=== PATIENT | female | born 1940 | race Two or more races ===

== ENCOUNTER 2021-11-30 22:06 | Emergency (ER) | payer MEDICARE, MEDICAID ==
[~2021-11-30] VITALS: Ht 157.5 cm; Wt 91.0 kg
[2021-11-30 22:08] VITALS: BP 127/70
[2021-12-01 00:27] LABS: CHLORIDE 99 mEq/L (98-107)
[2021-12-01 00:34] LABS: BASOPHILS % 0.3 % (0.0-2.0); EOSINOPHILS % 1.5 % (0.0-5.0); HEMATOCRIT. 43.9 % (36.0-48.0); HEMOGLOBIN. 14.7 g/dL (12.0-16.0); LYMPHOCYTES % 21.9 % (20.0-50.0); MEAN CORPUSCULAR HEMOGLOBIN 31.3 pg (28.0-32.0); MEAN CORPUSCULAR VOLUME 93.2 fL (81.0-99.0); MEAN PLATELET VOLUME 8.2 fl (7.4-10.4); NEUTROPHILS % 68.3 % (40.0-76.0); PLATELET 225 x1000/uL (130-400); RED BLOOD CELL COUNT 4.71 mill/uL (4.2-5.4); RED CELL DISTRIBUTION WIDTH 14.5 % (11.6-14.6)
== END 2021-12-01 00:58 | disposition left against medical advice (07) ==
LOC: ER 22:06
DX: R55 Syncope and collapse (principal); R10.13 Epigastric pain; I10 Essential (primary) hypertension; Z53.29 Procedure and treatment not carried out because of patient's decision for other reasons
CPT/HCPCS: 36415; 80053; 83880; 84484; 85025; 93005; 99284